=== PATIENT | male | born 1970 | race Caucasian/White ===

== ENCOUNTER 2017-02-27 15:34 | Emergency (ER) | payer BC ==
[2017-02-27 16:39] VITALS: BP 129/88
[2017-02-27] MEDS ORDERED: Tetan/Diph/Pertus SYR(Tdap)* 0.5 ML SYR(BOOSTRIX) use SYR IM ONE (16:57)
[2017-02-27] MEDS ORDERED: Lidocaine 2% PF * 5 ML VIAL INJ ONE (16:57)
--- NOTE | 2017-02-27 17:25 | UC ---
Skin Complaint HPI - HPI Summary HPI Summary: Patient presents with complaints of laceration to the right forearm. He states he cut it on a piece of copper at 1500. He washed it out and come to the clinic to have it sutured. He does not know when his last tetanus was. He denies any arm numbness, tingling, or weakness. He states he has full ROM. - History of Current Complaint Chief Complaint: UCLaceration Time Seen by Provider: 02/27/17 16:56 Stated Complaint: FINGER LACERATION - Allergy/Home Medications Allergies/Adverse Reactions: Allergies Allergy/AdvReac Type Severity Reaction Status Date / Time Erythromycin Allergy Rash Verified 02/27/17 16:39 Home Medications: Home Medications Cetirizine* [ZyrTEC 10 MG TAB*] 10 mg PO DAILY 02/27/17 [History Confirmed 02/27] Fluticasone-Salmeterol 100-50* [Advair Diskus 100-50*] 1 puff PO BID 02/27/17 [ History Confirmed 02/27/17] Omeprazole CAP* [Prilosec CAP* 20 MG] 20 mg PO DAILY 02/27/17 [History Confirmed 02/27/17] Review of Systems Skin: Other - right forearm laceration. All Other Systems Reviewed And Are Negative: Yes PMH/Surg Hx/FS Hx/Imm Hx Previously Healthy: Yes - Surgical History Surgical History: None - Family History Known Family History: Positive: None - Social History Occupation: Employed Part-time Lives: Alone Alcohol Use: Rare Substance Use Type: None Smoking Status (MU): Former Smoker Physical Exam Triage Information Reviewed: Yes Appearance: Well-Appearing Vital Signs: Initial Vital Signs Temp 97.8 F 02/27/17 16:36 Pulse 74 02/27/17 16:36 Resp 20 02/27/17 16:36 BP 129/88 02/27/17 16:36 Pulse Ox 100 02/27/17 16:36 Vital Signs Reviewed: Yes Eye Exam: Normal ENT Exam: Normal Neck exam: Normal Respiratory Exam: Normal Cardiovascular Exam: Normal Musculoskeletal Exam: Normal Skin Exam: Other - right forarm laceration 4.0 cm L x 1.0 cm W.superifical no muscle, tendon, bone, foreign body, patient could not sense FB in wound. Small piece of debris removed with tweezers. bloodless wound bed inspected. Laceration Repair - Laceration Repair 1 Description: Linear Laceration Size After Repair: Length (cm) - 4.0 x 1.0 Anesthesia Used: 2.0% Lido Cleansing Completed Via Routine Prep: Yes Irrigation With Pressure Irrigation Device: No Closure Material: Sutures Closure Method: Single Layer Suture Of: Skin Suture Type: Nylon - 6 simple interruped sutues placed. minimal blood loss, tolerated well. Course/Dx - Course Course Of Treatment: Patient presents with superficial laceration of right forearm, consent was obtained, lidocaine given, six sutures placed and approximated the wound. Minimal blood loss, tolerated well. Wound care and follow up instruction were given, all questions were answered. Discharged in stable condition. - Differential Diagnoses - Skin Complaint Differential Diagnoses: Other - laceration - Diagnoses Provider Diagnoses: laceration. sutures care. tetanus vaccine updated Discharge - Discharge Plan Condition: Stable Disposition: HOME Patient Education Materials: Diphtheria/Acellular Pertussis/Tetanus Vaccine ( By injection), Care For Your Stitches (ED), Laceration (ED) Referrals: Karthikeyan Simpson MD [Primary Care Provider] - Additional Instructions: Keep the stitches clean and dry. Have the stitches removed in 7-10 days. Come back in if the laceration begins to get red, warm, painful or has drainage.
== END 2017-02-27 17:24 | disposition home or self-care (01) ==
LOC: UCEAST 15:34
DX: S51.811A Laceration without foreign body of right forearm, initial encounter (principal); W26.8XXA Contact with other sharp object(s), not elsewhere classified, initial encounter; Y93.89 Activity, other specified; Y92.9 Unspecified place or not applicable; Z23 Encounter for immunization; Z88.1 Allergy status to other antibiotic agents; Z87.891 Personal history of nicotine dependence
CPT/HCPCS: 12002; 90715; 99211; G0463

== ENCOUNTER 2017-08-11 11:21 | Emergency (ER) | payer BC ==
[2017-08-11 12:15] VITALS: BP 131/91
--- NOTE | 2017-08-11 12:28 | UC ---
Eye Complaint HPI - HPI Summary HPI Summary: Pt presents with right upper eyelid swollen and red for the last 2 days. His told him that it's a stye, but they are concerned because it doesn't seem to be improving. He has not been applying warm compresses or doing any treatments to the area. Denies fever, chills, FB in eye, vision changes, glasses or contact wear. - History of Current Complaint Chief Complaint: UCEye Stated Complaint: SWOLLEN EYE LID Time Seen by Provider: 08/11/17 12:28 Hx Obtained From: Patient Onset/Duration: Sudden Onset Pain Intensity: 0 Location of Injury: Eye Lid (upper) - Allergies/Home Medications Allergies/Adverse Reactions: Allergies Allergy/AdvReac Type Severity Reaction Status Date / Time erythromycin base Allergy Mild Rash Verified 08/11/17 12:07 PMH/Surg Hx/FS Hx/Imm Hx - Additional Past Medical History Additional PMH: Allergies Previously Healthy: Yes - Surgical History Surgical History: None Surgery Procedure, Year, and Place: denies - Family History Known Family History: Positive: None - Social History Occupation: Employed Full-time Lives: With Family Alcohol Use: Rare Substance Use Type: None Smoking Status (MU): Former Smoker - Immunization History Most Recent Tetanus Shot: 6 months ago Review of Systems Constitutional: Negative Skin: Negative Eyes: Other - Upper eyelid swelling and redness ENT: Negative Respiratory: Negative Cardiovascular: Negative Neurological: Negative Psychological: Negative All Other Systems Reviewed And Are Negative: Yes Physical Exam Triage Information Reviewed: Yes Appearance: Well-Appearing, No Pain Distress, Well-Nourished Vital Signs: Initial Vital Signs Temp 98 F 08/11/17 12:12 Pulse 73 08/11/17 12:12 Resp 20 08/11/17 12:12 BP 131/91 08/11/17 12:12 Pulse Ox 100 08/11/17 12:12 Vital Signs Reviewed: Yes Eyes: Positive: Conjunctiva Clear, Other: - Right upper eyelid with mild edema and erythema. 1-2mm nodule on the lateral aspect of the upper eyelid. EOMI. PERRLA. No sclera injection.. Negative: Conjunctiva Inflamed, Discharge Neck: Positive: Supple, Nontender, No Lymphadenopathy Respiratory: Positive: Lungs clear, Normal breath sounds, No respiratory distress Cardiovascular: Positive: RRR, No Murmur, Pulses Normal Neurological: Positive: Alert Psychological: Positive: Age Appropriate Behavior Skin: Negative: rashes Eye Complaint Course/Dx - Course Course Of Treatment: Suspect stye. Advised to try warm compresses and with time should resolve. - Differential Dx/Diagnosis Provider Diagnoses: Stye right upper eyelid Discharge - Discharge Plan Condition: Stable Disposition: HOME Patient Education Materials: Stye (ED) Referrals: No Primary Care Phys,NOPCP [Primary Care Provider] - Additional Instructions: If you develop a fever, shortness of breath, chest pain, new or worsening symptoms - please call your PCP or go to the ED. Your blood pressure was high at todays visit. Please see your primary provider within 4 weeks for recheck and re-evaluation. 1) Try warm compresses throughout the day 2) May take ibuprofen or tylenol as needed for any discomfort 3) If your symptoms worsen or persist - please follow up with your PCP or go to the ED.
== END 2017-08-11 12:38 | disposition home or self-care (01) ==
LOC: UCEAST 11:21
DX: H00.021 Hordeolum internum right upper eyelid (principal); Z88.1 Allergy status to other antibiotic agents; Z87.891 Personal history of nicotine dependence
CPT/HCPCS: 99211; G0463